=== PATIENT | female | born 1985 | race Caucasian/White ===

== ENCOUNTER 2018-03-13 13:01 | Inpatient (IN) | payer BC ==
[2018-03-13] MEDS ORDERED: Sodium Chloride 0.9% 10 ML Syringe FLUSH PRN (13:08)
[2018-03-13] MEDS ORDERED: Oxytocin/Lactated Ringers 10 UNIT/1,000 ML BAG IV SCH ×2 (13:15→19:46)
--- NOTE | 2018-03-13 13:45 | PCM.LDHP ---
L&D History of Present Illness - General Date of Service: 03/13/18 Admit Problem/Dx: Patient Status Order with Admit Dx/Problem 03/13/18 13:09 Patient Status [ADT] Routine Admission Diagnosis/Problem Admission Diagnosis/Problem Source of Information: Patient History Limitations: Reports: No Limitations - History of Present Illness Introduction:: Argelia Miller is a 32 year old at 37 weeks 5 days by 8 week U/S who was sent down from clinic for labor. She was seen in the clinic after she reported contractions that started last evening approximately 1 AM. She reports the contractions were about every 4-5 minutes and lasting 30-45 seconds. She reports that the contractions were strong enough to wake her up and that they have been increasing in intensity from the morning. Has morning she continued to have contractions that were about 4-5 minutes apart but they were then lasting 45-60 seconds. She reports that the contractions at this time a rating at a 5/10 on a pain scale. She denies any leaking of fluid or vaginal bleeding. She reports that she has had some what decreased movement since she was seen in clinic yesterday. Timing/Duration: Reports: gradual onset, getting worse Location, : Reports: Abdomen, Lower back, Pelvic Quality: Reports: Pressure, Throbbing Severity: Moderate Pain Score: 5 Improves with: Reports: None Worsens with: Reports: None Associated Symptoms: Denies: vaginal bleeding, vaginal discharge, vaginal fluid Present Illness Comments:: Argelia Miller is a 32 year old at 37 weeks 5 days by LMP consistent with 8 week U/S. she had early care in [place], [place] starting at approximately 8 weeks gestational age but transferred care to [facility] with Dr. Lares at 24 weeks gestational age. She had a transfer of care because she desired a trial of labor after section. Her initial labs showed O+ blood type with negative antibody screen. Her hematocrit was 38.3 and hemoglobin was 13.2 on 08/21/2017. Her platelets were 253 on 08/21/2017. Her Pap smear on 12/05/2015 was negative. She is rubella immune, RPR nonreactive, hepatitis B surface antigen negative and HIV negative. Chlamydia and gonorrhea on 08/18/2017 was negative. She had an elevated 1 hour glucose test of 131 on 01/15/2018. Her 3 hour glucose test was all within normal limits with values of fasting of 74, 1 hour of 168, 2 hour of 142 and 3 hour of 83. Her hematocrit was 39.8 and hemoglobin of 13.5 on 01/15/2018. Her platelets were 224 on 01/15/2018. She received TDaP vaccine on 01/15/2018. Her GBS swab was negative on 03/04/2018.sstarting at her 36 week visit she started to have decreased growth that was inconsistent with dates and an ultrasound that was performed on 03/12/2018 showed intrauterine growth restriction with estimated weight of 2602 g which was the 9th percentile. Her has otherwise been uncomplicated except for history of primary low transverse section for intolerance of labor after she went to complete and pushing in her first . She had a double layer closure with that . She desired to have a trial of labor after in this . 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) : 2 Para: 1 Other OB/BYN History: LEEP Neurological History: Reports: Migraines - Past Surgical History Female Surgical History: Reports: Section (x 1) Dermatological Surgical History: Reports: 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) Social & Family History - Family History Respiratory: Reports: Asthma, TB Musculoskeletal: Reports: Arthritis Neurological: Reports: Alzheimers Disease, Migraines Immunologic: Reports: AIDS Oncologic: Reports: Lung, Skin - Tobacco Use Smoking Status *Q: Never Smoker - Alcohol Use Alcohol Use History: No - Recreational Drug Use Recreational Drug Use: No - Sexual History Sexual History: Reports: Single Partner - Living Situation & Occupation Living situation: Reports: Occupation: Employed H&P Review of Systems - Review of Systems: Review Of Systems: See Below General: Denies: Fever, Chills, Fatigue HEENT: Denies: Headaches, Rhinitis, Post Nasal Drip, Sinus Congestion, Sore Throat, Visual Changes Pulmonary: Denies: Shortness of Breath, Wheezing, Cough Cardiovascular: Denies: Chest Pain, Palpitations Gastrointestinal: Reports: Diarrhea (x 1 episode yesterday). Denies: Abdominal Pain, Constipation, Distension, Nausea, Vomiting Genitourinary: Denies: Dysuria, Frequency, Burning, Pain, Urgency Musculoskeletal: Reports: Back Pain Skin: Denies: Rash Psychiatric: Denies: Depression, Anxiety Neurological: Denies: Headache, Numbness Hematologic/Lymphatic: Denies: Anemia Immunologic: Reports: Seasonal Allergy L&D Exam - Exam Exam: See Below - Vital Signs Vital Signs: Last Vital Signs Temp 37.1 C 03/13/18 13:09 Pulse 82 03/13/18 13:09 Resp 16 03/13/18 13:09 BP 108/66 03/13/18 13:09 Pulse Ox 100 03/13/18 13:09 Weight: 63.503 kg - OB Specific Fundal Height In cm: 33 Contraction Duration (sec): 45-60 Contraction Frequency (min): 4-5 Contraction Intensity: Moderate Movement: Active Heart Tones: Present Heart Tones per Min: 140 Heart Rate (FHR) Variability: Moderate (6-25 bmp) Presentation: Vertex Estimated Weight: 5 lbs 12 oz by U/S done on 03/12/2018 - West Score West Score Cervix Position: Midposition West Score Consistency: Soft West Score Effacement: >80% West Score Dilation: 3-4 cm West Score 's Station: -3 West Score Total: 8 - Exam General: Alert, Oriented, Mild Distress (with contractions) HEENT: Conjunctiva Clear, EOMI Neck: Supple, Trachea Midline Lungs: Clear to Auscultation, Normal Respiratory Effort Cardiovascular: Regular Rate, Regular Rhythm GI/Abdominal Exam: Soft, Non-Tender, No Distention, Other (gravid). No: Guarding, Rigid, Rebound Genitourinary: Normal external exam, Other (artificial rupture membranes with return of light meconium-stained fluid) Back Exam: Normal Inspection Extremities: Normal Inspection, No Pedal Edema Skin: Warm, Dry, Intact Psychiatric: Alert, Normal Affect, Normal Mood - Problem List (1) 37 weeks gestation of SNOMED Code(s): 32418034 ICD Code: Z3A.37 - 37 WEEKS GESTATION OF Status: Acute Current Visit: Yes (2) History of section, low transverse SNOMED Code(s): 055389646 ICD Code: Z98.891 - HISTORY OF UTERINE SCAR FROM PREVIOUS SURGERY Status: Acute Current Visit: Yes (3) History of delivery, currently SNOMED Code(s): 194442392, 562625500 ICD Code: O34.219 - MATERNAL CARE FOR UNSP TYPE SCAR FROM PREVIOUS DEL Status: Acute Current Visit: Yes (4) Encounter for trial of labor SNOMED Code(s): 448526703 ICD Code: O33.9 - MATERNAL CARE FOR DISPROPORTION, UNSPECIFIED Status: Acute Current Visit: Yes (5) Intrauterine growth restriction (IUGR) affecting care of mother, third trimester, single gestation SNOMED Code(s): 477489534, 571715487 ICD Code: O36.5930 - MATERN CARE FOR OTH OR SUSP POOR FETL GRTH, THIRD TRI, UNSP Status: Acute Current Visit: Yes Problem List Initiated/Reviewed/Updated: Yes Orders Last 24hrs: Active Orders 24 hr Category Date Time Status Patient Status [ADT] Routine ADT 03/13/18 13:09 Active Activity as Tolerated [RC] PFP Care 03/13/18 13:09 Active Communication Order [RC] ASDIRECTED Care 03/13/18 13:09 Active Heart Tones [RC] ASDIRECTED Care 03/13/18 13:09 Active Notify Provider [RC] PFP Care 03/13/18 13:09 Active Notify Provider [RC] PRN Care 03/13/18 13:09 Active Peripheral IV Care [RC] . DIRECTED Care 03/13/18 13:09 Active Vital Signs [RC] PER UNIT ROUTINE Care 03/13/18 13:09 Active Regular Diet [DIET] Diet 03/13/18 Lunch Active CBC WITH AUTO DIFF [HEME] Routine Lab 03/13/18 13:22 Received TYPE AND SCREEN [BBK] Routine Lab 03/13/18 13:32 Ordered Lactated Ringers [Ringers, Lactated] 1,000 ml Med 03/13/18 13:15 Active IV ASDIRECTED Oxytocin/Lactated Ringers [Pitocin in LR 10 Units/1,000 Med 03/13/18 13:15 Active ML] 10 unit in 1,000 ml IV .CONTINUOUS Sodium Chloride 0.9% [Saline Flush] Med 03/13/18 13:08 Active 10 ml FLUSH ASDIRECTED PRN Electronic Heart Tones Ext w TOCO [WOMSER] Oth 03/13/18 13:09 Ordered Routine Electronic Heart Tones Internal [WOMSER] Per Unit Ot 03/13/18 13:09 Ordered Routine Peripheral IV Insertion Adult [OM.PC] Routine Ot 03/13/18 13:09 Ordered Resuscitation Status Routine Resus Stat 03/13/18 13:08 Ordered Medication Orders Lactated Ringer's (Ringers, Lactated) 1,000 mls @ 100 mls/hr IV ASDIRECTED RALPH Oxytocin/Lactated Ringer's (Pitocin In Lr 10 Units/1,000 Ml) 10 unit in 1,000 mls @ 500 mls/hr IV .CONTINUOUS RALPH Sodium Chloride (Saline Flush) 10 ml FLUSH ASDIRECTED PRN PRN Reason: Keep Vein Open Stop: 03/13/18 16:00 Assessment/Plan Comment:: Refer to observation for trial of labor after section Continuous monitoring Place IV and have Lactated Ringer's at 125 ml/hr if not tolerating regular diet CBC and type and screen due to history of section with trial labor after May have small amount of regular diet Activity as tolerated May have epidural as desired Plans to breast-feed after delivery Anticipate vaginal delivery unless otherwise indicated Jose Lares M.D. 1:56 PM 03/13/2018
[2018-03-13] MEDS ORDERED: ePHEDrine 50 MG/ML SDV IVPUSH PRN (13:51)
[2018-03-13] MEDS ORDERED: Ondansetron 4 MG/2 ML SDV IVPUSH PRN (13:51)
[2018-03-13] MEDS ORDERED: fentaNYL 100 MCG/2 ML SDV EPIDUR PRN (13:51)
[2018-03-13] MEDS: Lactated Ringers 1,000 ML IV SCH ×2 (13:57→14:26)
[2018-03-13] MEDS ORDERED: Bupivacaine/fentaNYL/NS 100 ML Bag EPIDUR SCH (14:00)
[2018-03-13] MEDS ORDERED: Phenylephrine 1 MG in Sodium Chloride 0.9% 10 ML IV SCH (14:00)
--- NOTE | 2018-03-13 14:03 | PCM.PREANE ---
Preanesthetic Assessment - Anesthesia/Transfusion/Family Hx Anesthesia History: Prior Anesthesia Without Reaction Family History of Anesthesia Reaction: No Transfusion History: No Prior Transfusion(s) Intubation History: Unknown - Review of Systems General: No Symptoms Pulmonary: No Symptoms Cardiovascular: No Symptoms Gastrointestinal: No Symptoms Neurological: Headache (migraines) Other: Reports: Easy Bruising - Physical Assessment NPO Status Date: 03/13/18 NPO Status Time: 09:30 Pulse: 82 O2 Sat by Pulse Oximetry: 100 Respiratory Rate: 16 Blood Pressure: 108/66 Temperature: 2.8 C Vital Signs: Last Vital Signs Temp 37.1 C 03/13/18 13:09 Pulse 82 03/13/18 13:09 Resp 16 03/13/18 13:09 BP 108/66 03/13/18 13:09 Pulse Ox 100 03/13/18 13:09 Height: 1.57 m Weight: 63.503 kg ASA Class: 2 Mental Status: Alert & Oriented x3 Airway Class: Mallampati = 2 Dentition: Reports: Normal Dentition, Caries Thyro-Mental Finger Breadths: 3 Mouth Opening Finger Breadths: 3 ROM/Head Extension: Full Lungs: Clear to Auscultation, Normal Respiratory Effort Cardiovascular: Regular Rate, Regular Rhythm, No Murmurs - Lab Values: Laboratory Last Values WBC 10.66 K/mm3 (3.98-10.04) H 03/13/18 13:22 RBC 4.25 M/mm3 (3.98-5.22) 03/13/18 13:22 Hgb 13.3 gm/L (11.2-15.7) 03/13/18 13:22 Hct 38.4 % (34.1-44.9) 03/13/18 13:22 MCV 90.4 fl (79.4-94.8) 03/13/18 13:22 MCH 31.3 pg (25.6-32.2) 03/13/18 13:22 MCHC 34.6 g/dl (32.2-35.5) 03/13/18 13:22 RDW Std Deviation 42.3 fL (36.4-46.3) 03/13/18 13:22 Plt Count 197 K/mm3 (182-369) 03/13/18 13:22 MPV 10.0 fl (9.4-12.3) 03/13/18 13:22 Neut % (Auto) 78.0 % (34.0-71.1) H 03/13/18 13:22 Lymph % (Auto) 16.3 % (19.3-51.7) L 03/13/18 13:22 [place] % (Auto) 4.9 % (4.7-12.5) 03/13/18 13:22 Eos % (Auto) 0.3 (0.7-5.8) L 03/13/18 13:22 Baso % (Auto) 0.2 % (0.1-1.2) 03/13/18 13:22 Neut # (Auto) 8.32 K/mm3 (1.56-6.13) H 03/13/18 13:22 Lymph # (Auto) 1.74 K/mm3 (1.18-3.74) 03/13/18 13:22 [place] # (Auto) 0.52 K/mm3 (0.24-0.36) H 03/13/18 13:22 Eos # (Auto) 0.03 K/mm3 (0.04-0.36) L 03/13/18 13:22 Baso # (Auto) 0.02 K/mm3 (0.01-0.08) 03/13/18 13:22 Above labs reviewed and noted and within acceptable ranges to proceed with epidural. 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) [employer]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: , 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) Other OB/BYN History: LEEP Neurological History: Reports: Migraines - Past Surgical History Female Surgical History: Reports: Section (x 1) Dermatological Surgical History: Reports: 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) - SUBSTANCE USE Smoking Status *Q: Never Smoker Second Hand Smoke Exposure: No Recreational Drug Use History: No - HOME MEDS Home Medications: Home Meds PNV95/Ferrous Fumarate/FA [ Tablet] 1 tab PO DAILY 03/13/18 [History] - CURRENT (IN HOUSE) MEDS Current Meds: Current Medications Ephedrine Sulfate (Ephedrine Sulfate) 5 mg IVPUSH ASDIRECTED PRN PRN Reason: Hypotension Fentanyl (Sublimaze) 100 mcg EPIDUR Q3H PRN PRN Reason: Pain Fentanyl/Bupivacaine HCl (Fentanyl/Bupivacaine/Ns 2 Mcg-0.125% 100 Ml) 100 ml EPIDUR ASDIRECTED RALPH Lactated Ringer's (Ringers, Lactated) 1,000 mls @ 100 mls/hr IV ASDIRECTED RALPH Oxytocin/Lactated Ringer's (Pitocin In Lr 10 Units/1,000 Ml) 10 unit in 1,000 mls @ 500 mls/hr IV .CONTINUOUS RALPH Phenylephrine HCl 1 mg/ Sodium (Chloride) 10.1 mls @ 1 mls/sec IV TITRATE RALPH; Protocol Ondansetron HCl (Zofran) 4 mg IVPUSH ONETIME PRN PRN Reason: Nausea/Vomiting Sodium Chloride (Saline Flush) 10 ml FLUSH ASDIRECTED PRN PRN Reason: Keep Vein Open Stop: 03/13/18 16:00
--- NOTE | 2018-03-13 19:21 | PCM.DEL ---
L & D Note - General Info Date of Service: 03/13/18 Mother's Due Date: 03/29/18 - Delivery Note Labor: Spontaneous, Augmented by ARM Delivery Outcome: Livebirth Delivery Method: Spontaneous Vaginal Delivery-Single Presentation: Right Occiput Anterior (LEDA) Nuchal Cord: None Anesthesia Type: Epidural Amniotic Fluid Description: Meconium Stained Episiotomy Type: None Laceration: 2nd Degree, Perineal Suture type: Vicryl Suture size: 3-0 Placenta: Intact, Spontaneous Cord: 3 Vessels Estimated Blood Loss: 300 Resuscitation Needed: Yes [place]: Suctioned, Bulb Syringe, Stimulated, Warmed, [place] Used, Warmer Used Provider: Jose Lares Score 1 min: 0 Score 5 min: 3 Score 10 min: 8 Second Stage Interventions: Reports: Pushing Effectively Delivery Comments (Free Text/Narrative):: Stage I: Argeila Miller was admitted for spontaneous labor. On admission her cervix was dilated to 4 cm. She was GBS negative. She had artificial rupture membranes with meconium-stained fluid. She was given an epidural for anesthesia. She progressed to complete and pushing. Stage II: On 03/13/2018 she had a normal vaginal delivery of a live male infant at 1840. Apgars of 0, 3 & 8. Weight of 2600 g (5 lbs 12 oz). There was no nuchal cord. Infant was delivered in LEDA position. The cord was doubly clamped and cut by father . Infant was placed on mother's abdomen initially then transferred to warmer for resuscitation. Stage III: She had a spontaneous delivery of an intact placenta in Freddie presentation. Three vessel cord. She was given pitocin and fundal massage. She had second degree midline perineal laceration that was repaired with 3-0 Vicryl. Mom was stable to recovery. was transferred to nursery for further evaluation and resuscitation. EBL of 300 mL. Jose Lares MD 7:21 PM 03/13/2018 - General Info Date of Service: 03/13/18 - Patient Data Vitals - Most Recent: Last Vital Signs Temp 2.8 C L 03/13/18 14:05 Pulse 82 03/13/18 14:05 Resp 16 03/13/18 14:05 BP 108/66 03/13/18 14:05 Pulse Ox 100 03/13/18 14:05 Weight - Most Recent: 63.503 kg I&O - Last 24 Hours: Intake & Output 03/13/18 03/13/18 03/13/18 06:59 14:59 22:59 Intake Total 60 Balance 60 Lab Results Last 24 Hours: Laboratory Results - last 24 hr 03/13/18 03/13/18 03/13/18 Range/Units 13:22 13:22 18:50 WBC 10.66 H (3.98-10.04) K/mm3 RBC 4.25 (3.98-5.22) M/mm3 Hgb 13.3 (11.2-15.7) gm/L Hct 38.4 (34.1-44.9) % MCV 90.4 (79.4-94.8) fl MCH 31.3 (25.6-32.2) pg MCHC 34.6 (32.2-35.5) g/dl RDW Std Deviation 42.3 (36.4-46.3) fL Plt Count 197 (182-369) K/mm3 MPV 10.0 (9.4-12.3) fl Neut % (Auto) 78.0 H (34.0-71.1) % Lymph % (Auto) 16.3 L (19.3-51.7) % [place] % (Auto) 4.9 (4.7-12.5) % Eos % (Auto) 0.3 L (0.7-5.8) Baso % (Auto) 0.2 (0.1-1.2) % Neut # (Auto) 8.32 H (1.56-6.13) K/mm3 Lymph # (Auto) 1.74 (1.18-3.74) K/mm3 [place] # (Auto) 0.52 H (0.24-0.36) K/mm3 Eos # (Auto) 0.03 L (0.04-0.36) K/mm3 Baso # (Auto) 0.02 (0.01-0.08) K/mm3 Cord ABG pH 7.18 L (7.22-7.32) Cord ABG pCO2 54.1 (42-58) Cord ABG pO2 21 (12-24) Cord ABG HCO3 19.3 L (24-26) Cord ABG Base Excess -9.8 L (-5.5-0.1) Blood Type O POSITIVE Gel Antibody Screen Negative Med Orders - Current: Current Medications Ephedrine Sulfate (Ephedrine Sulfate) 5 mg IVPUSH ASDIRECTED PRN PRN Reason: Hypotension Fentanyl (Sublimaze) 100 mcg EPIDUR Q3H PRN PRN Reason: Pain Last Admin: 03/13/18 14:06 Dose: 100 mcg Fentanyl/Bupivacaine HCl (Fentanyl/Bupivacaine/Ns 2 Mcg-0.125% 100 Ml) 100 ml EPIDUR ASDIRECTED RALPH Last Admin: 03/13/18 14:05 Dose: 100 ml Lactated Ringer's (Ringers, Lactated) 1,000 mls @ 100 mls/hr IV ASDIRECTED RALPH Last Admin: 03/13/18 14:26 Dose: 999 mls/hr Oxytocin/Lactated Ringer's (Pitocin In Lr 10 Units/1,000 Ml) 10 unit in 1,000 mls @ 500 mls/hr IV .CONTINUOUS RALPH Phenylephrine HCl 1 mg/ Sodium (Chloride) 10.1 mls @ 1 mls/sec IV TITRATE RALPH; Protocol Ondansetron HCl (Zofran) 4 mg IVPUSH ONETIME PRN PRN Reason: Nausea/Vomiting Discontinued Medications Sodium Chloride (Saline Flush) 10 ml FLUSH ASDIRECTED PRN PRN Reason: Keep Vein Open Stop: 03/13/18 16:00 - Problem List & Annotations (1) 37 weeks gestation of SNOMED Code(s): 25598336 Code(s): Z3A.37 - 37 WEEKS GESTATION OF Status: Acute Current Visit: Yes (2) History of section, low transverse SNOMED Code(s): 895833914 Code(s): Z98.891 - HISTORY OF UTERINE SCAR FROM PREVIOUS SURGERY Status: Acute Current Visit: Yes (3) History of delivery, currently SNOMED Code(s): 393193209, 983057307 Code(s): O34.219 - MATERNAL CARE FOR UNSP TYPE SCAR FROM PREVIOUS DEL Status: Acute Current Visit: Yes (4) Intrauterine growth restriction (IUGR) affecting care of mother, third trimester, single gestation SNOMED Code(s): 291579641, 167362621 Code(s): O36.5930 - MATERN CARE FOR OTH OR SUSP POOR FETL GRTH, THIRD TRI, UNSP Status: Acute Current Visit: Yes (5) Vaginal after () SNOMED Code(s): 179371911 Code(s): O34.219 - MATERNAL CARE FOR UNSP TYPE SCAR FROM PREVIOUS DEL Status: Acute Current Visit: Yes (6) Second degree perineal laceration during delivery, delivered SNOMED Code(s): 1895187 Code(s): O70.1 - SECOND DEGREE PERINEAL LACERATION DURING DELIVERY Status: Acute Current Visit: Yes (7) Encounter for trial of labor SNOMED Code(s): 255426160 Code(s): O33.9 - MATERNAL CARE FOR DISPROPORTION, UNSPECIFIED Status: Acute Current Visit: Yes - Problem List Review Problem List Initiated/Reviewed/Updated: Yes - My Orders Last 24 Hours: My Active Orders 03/13/18 13:08 Resuscitation Status Routine 03/13/18 13:09 Patient Status [ADT] Routine Activity as Tolerated [RC] PFP Communication Order [RC] ASDIRECTED Heart Tones [RC] ASDIRECTED Notify Provider [RC] PFP Notify Provider [RC] PRN Peripheral IV Care [RC] . DIRECTED Vital Signs [RC] PER UNIT ROUTINE Electronic Heart Tones Ext w TOCO [WOMSER] Routine Electronic Heart Tones Internal [WOMSER] Per Unit Routine Peripheral IV Insertion Adult [OM.PC] Routine 03/13/18 13:15 Lactated Ringers [Ringers, Lactated] 1,000 ml IV ASDIRECTED Oxytocin/Lactated Ringers [Pitocin in LR 10 Units/1,000 ML] 10 unit in 1,000 ml IV .CONTINUOUS 03/13/18 13:22 RAPID PLASMA REAGIN,RPR [CHEM] Routine 03/13/18 Lunch Regular Diet [DIET] - Plan Plan:: Admit to inpatient following normal spontaneous vaginal delivery after section Continue Pitocin per unit protocol following delivery of placenta and lactated Ringer's until tolerating regular diet Regular diet Vitals per unit routine Ibuprofen and Tylenol for pain control Assist with breast-feeding as needed Continue to monitor lochia Anticipate discharge home on day #1 or 2 depending on status Jose Lares MD 7:23 PM 03/13/2018
[2018-03-13] MEDS ORDERED: Benzocaine/Menthol 20%-0.5% Spray 56 GM Canister TOP PRN (19:46)
[2018-03-13] MEDS ORDERED: Acetaminophen 325 MG Tab PO PRN (19:46)
[2018-03-13] MEDS ORDERED: Lanolin 100% Cream 7 GM Tube TOP PRN (19:46)
[2018-03-13] MEDS ORDERED: Hydrocortisone Acetate 25 MG Supp RECTAL PRN (19:46)
[2018-03-13] MEDS ORDERED: Witch Hazel Medicated Pads 100/Jar TOP PRN (19:46)
[2018-03-13] MEDS ORDERED: Lactated Ringers 1,000 ML IV SCH (19:46)
[2018-03-13] MEDS: Ibuprofen 600 MG Tab PO PRN (20:12)
--- NOTE | 2018-03-13 20:54 | PCM48HPAN ---
Post Anesthesia Note - EVALUATION WITHIN 48HRS OF ANESTHETIC Vital Signs in Normal Range: Yes Patient Participated in Evaluation: Yes Respiratory Function Stable: Yes Airway Patent: Yes Cardiovascular Function Stable: Yes Hydration Status Stable: Yes Pain Control Satisfactory: Yes Nausea and Vomiting Control Satisfactory: Yes Mental Status Recovered: Yes
[2018-03-13] MEDS ORDERED: Bupivacaine 0.25% 10 ML SDV ONE (22:00)
[2018-03-14] MEDS: Ibuprofen 600 MG Tab PO PRN ×4 (02:24→23:29)
--- NOTE | 2018-03-14 07:16 | PCM.SN ---
- Free Text/Narrative Note: day 1: Patient is doing well in the period. Minimal lochia, voiding well, ambulated without problems. Nursing without concerns. Patient is afebrile, vital signs are stable Abdomen is flat, soft, uterus is below the umbilicus and is firm and nontender. Legs are nontender. Assessment: recovery going well. Plan: Routine care. Patient be discharged home within the next 24- 48 hours.
[2018-03-14] MEDS: Prenatal Multivitamin with Calcium/Folic Acid/Iron Tab PO SCH (09:13)
[2018-03-14] MEDS: Docusate Sodium 100 MG Cap PO PRN ×2 (09:13→21:21)
[2018-03-15] MEDS: Ibuprofen 600 MG Tab PO PRN ×3 (05:08→18:02)
--- NOTE | 2018-03-15 07:48 | PCM.DCSUM1 ---
Discharge Summary - Hospital Course Free Text/Narrative:: Mireya is a 32-year-old 2 now para 2002 was admitted in active labor at 4 cm dilated on 03/13/2018. She had artificial rupture membranes with meconium- stained amniotic fluid. She was given epidural for anesthesia. We'd and on 2017 had a normal vaginal delivery of a viable male infant at 1840 hrs. Apgars were 0, 3 and 8. Weight was 2600 mL 5 lbs. 12 oz. Baby was delivered in LEDA position. Doubly clamped and cut by the baby's father. babies been doing well. Patient is having some difficulty nursing. She has minimal discomfort, minimal lochia. She is voiding well and ambulating without concerns. Patient desiring discharge home today. - Discharge Data Discharge Date: 03/15/18 Discharge Disposition: Home, Self-Care 01 Condition: Good - Patient Instructions Diet: Regular Diet as Tolerated (Nursing diet was increased calories and calcium is recommended) Activity: As Tolerated (No intercourse or tampons until bleeding resolves) Driving: Do Not Drive (2 days) Showering/Bathing: May Shower (May take a bath) Notify Provider of: Fever, Increased Pain, Swelling and Redness, Nausea and/or Vomiting - Discharge Plan Home Medications: Home Meds PNV95/Ferrous Fumarate/FA [ Tablet] 1 tab PO DAILY 03/13/18 [History] Acetaminophen [Tylenol] 650 mg PO Q6H PRN tablet 03/15/18 [Rx] Ibuprofen [Motrin] 600 mg PO Q6H PRN #30 tablet 03/15/18 [Rx] - Discharge Summary/Plan Comment DC Time >30 min.: No Discharge Summary/Plan Comment: Discharge instructions: 1. Discharge home 2. Diet, activity and follow-up discussed with patient. Recommend nursing diet with increased calories and calcium. 3. Precautions given concern increased pain, bleeding, temperature, signs/ symptoms of DVT/PE. 4. Medications per home medication was printed, discussed with and given to the patient. 5. Return to clinic-Dr. Lares[facility] in 2 weeks. Diagnosis: Term -delivered Condition: Good - Patient Data Vitals - Most Recent: Last Vital Signs Temp 36.8 C 03/15/18 03:24 Pulse 69 06/10/18 03:24 Resp 15 03/15/18 03:24 BP 118/90 03/15/18 03:24 Pulse Ox 100 03/15/18 03:24 Weight - Most Recent: 63.503 kg Med Orders - Current: Current Medications Acetaminophen (Tylenol) 650 mg PO Q6H PRN PRN Reason: mild pain or fever Benzocaine/Menthol (Dermoplast Pain Relief [place]) 0 gm TOP ASDIRECTED PRN PRN Reason: Perineal Comfort Measure Last Admin: 03/14/18 11:35 Dose: 1 can Docusate Sodium (Colace) 100 mg PO BID PRN PRN Reason: Constipation Last Admin: 03/14/18 21:21 Dose: 100 mg Emollient Ointment (Lansinoh Hpa) 0 gm TOP ASDIRECTED PRN PRN Reason: Sore Nipples Last Admin: 03/14/18 18:30 Dose: 1 tube Hydrocortisone Acetate (Anucort-Hc) 25 mg RECTAL BID PRN PRN Reason: Hemorrhoid pain Lactated Ringer's (Ringers, Lactated) 1,000 mls @ 125 mls/hr IV ASDIRECTED RALPH Oxytocin/Lactated Ringer's (Pitocin In Lr 10 Units/1,000 Ml) 10 unit in 1,000 mls @ 100 mls/hr IV TITRATE RALPH; Protocol Last Admin: 03/13/18 18:40 Dose: 500 mls/hr Ibuprofen (Motrin) 600 mg PO Q6H PRN PRN Reason: Mild pain or fever Last Admin: 03/15/18 05:08 Dose: 600 mg Prenat Multivit/Clerical Adviser/Iron/Folic Ac ( Plus Iron) 1 each PO DAILY RALPH Last Admin: 03/14/18 09:13 Dose: 1 each Witch Regina (Tucks) 1 pad TOP ASDIRECTED PRN PRN Reason: Hemorrhoid pain Last Admin: 03/14/18 11:35 Dose: 1 canister Discontinued Medications Ephedrine Sulfate (Ephedrine Sulfate) 5 mg IVPUSH ASDIRECTED PRN PRN Reason: Hypotension Fentanyl (Sublimaze) 100 mcg EPIDUR Q3H PRN PRN Reason: Pain Last Admin: 03/13/18 14:06 Dose: 100 mcg Fentanyl/Bupivacaine HCl (Fentanyl/Bupivacaine/Ns 2 Mcg-0.125% 100 Ml) 100 ml EPIDUR ASDIRECTED RALPH Last Admin: 03/13/18 14:05 Dose: 100 ml Lactated Ringer's (Ringers, Lactated) 1,000 mls @ 100 mls/hr IV ASDIRECTED RALPH Last Admin: 03/13/18 14:26 Dose: 999 mls/hr Oxytocin/Lactated Ringer's (Pitocin In Lr 10 Units/1,000 Ml) 10 unit in 1,000 mls @ 500 mls/hr IV .CONTINUOUS RALPH Phenylephrine HCl 1 mg/ Sodium (Chloride) 10.1 mls @ 1 mls/sec IV TITRATE RALPH; Protocol Ondansetron HCl (Zofran) 4 mg IVPUSH ONETIME PRN PRN Reason: Nausea/Vomiting Sodium Chloride (Saline Flush) 10 ml FLUSH ASDIRECTED PRN PRN Reason: Keep Vein Open Stop: 03/13/18 16:00
[2018-03-15] MEDS: Prenatal Multivitamin with Calcium/Folic Acid/Iron Tab PO SCH (09:19)
[2018-03-15] MEDS: Docusate Sodium 100 MG Cap PO PRN (09:20)
[2018-03-15 17:56] VITALS: BP 107/65
== END 2018-03-15 19:35 | disposition home or self-care (01) | DRG 560 ==
LOC: JD.OB 13:01 → OBSVTOIN 18:40 → JD.OB 18:40
PROVIDERS: ADMIT Obstetrics & Gynecology; ATTEND Obstetrics & Gynecology
PROC: 10E0XZZ Delivery of Products of Conception, External Approach (ICD-10-PCS; principal; 2018-03-13)
PROC: 0KQM0ZZ Repair Perineum Muscle, Open Approach (ICD-10-PCS; principal; 2018-03-13)
PROC: 10907ZC Drainage of Amniotic Fluid, Therapeutic from Products of Conception, Via Natural or Artificial Opening (ICD-10-PCS; principal; 2018-03-13)
PROC: 00HU33Z Insertion of Infusion Device into Spinal Canal, Percutaneous Approach (ICD-10-PCS; 2018-03-13)
PROC: 3E0R3BZ Introduction of Anesthetic Agent into Spinal Canal, Percutaneous Approach (ICD-10-PCS; 2018-03-13)
DX: O34.211 Maternal care for low transverse scar from previous cesarean delivery (principal); N85.8 Other specified noninflammatory disorders of uterus; Z3A.37 37 weeks gestation of pregnancy; Z37.0 Single live birth; O70.1 Second degree perineal laceration during delivery; O36.5930 Maternal care for other known or suspected poor fetal growth, third trimester, not applicable or unspecified; O98.32 Other infections with a predominantly sexual mode of transmission complicating childbirth; A63.0 Anogenital (venereal) warts; O77.0 Labor and delivery complicated by meconium in amniotic fluid
CPT/HCPCS: 36415; 36600; 51701; 51702; 59025; 59300; 59409; 82803; 85025; 86592; 86850; 86900; 86901; A9270-GY; J2590; J3010; J7120

== ENCOUNTER 2020-10-18 13:27 | Inpatient (IN) | payer BC ==
[2020-10-18] MEDS ORDERED: Sodium Chloride 0.9% 10 ML Syringe FLUSH PRN (14:12)
[2020-10-18] MEDS ORDERED: Ondansetron 4 MG/2 ML SDV IVPUSH PRN ×2 (14:12→15:01)
[2020-10-18] MEDS ORDERED: Lidocaine 1% 50 ML MDV INJECT ONE (14:12)
[2020-10-18] MEDS ORDERED: Nalbuphine 10 MG/1 ML Vial IVPUSH PRN (14:12)
[2020-10-18] MEDS ORDERED: Oxytocin/Lactated Ringers 10 UNIT/1,000 ML BAG IV SCH ×2 (14:15→19:43)
[2020-10-18] MEDS ORDERED: fentaNYL 100 MCG/2 ML SDV EPIDUR PRN (15:01)
[2020-10-18] MEDS ORDERED: ePHEDrine 50 MG/ML SDV IVPUSH PRN (15:01)
--- NOTE | 2020-10-18 15:01 | PCM.PREANE ---
Preanesthetic Assessment - Procedure Proposed Procedure: Laboring Epidural - Anesthesia/Transfusion/Family Hx Anesthesia History: Prior Anesthesia Without Reaction Family History of Anesthesia Reaction: No Transfusion History: No Prior Transfusion(s) Intubation History: Unknown - Review of Systems General: No Symptoms Pulmonary: No Symptoms Cardiovascular: No Symptoms Gastrointestinal: No Symptoms Neurological: No Symptoms (occasional chiropractor visits), Headache (migraines) Other: Reports: None, Easy Bruising - Physical Assessment NPO Status Date: 10/18/20 NPO Status Time: 13:30 Vital Signs: HR:74 Sat:99% Temp:98.9 B/P:115/66 Resp:16 Height: 1.6 m Weight: 66.48 kg ASA Class: 2 Mental Status: Alert & Oriented x3 Airway Class: Mallampati = 2 Dentition: Reports: Normal Dentition, Caries Thyro-Mental Finger Breadths: 3 Mouth Opening Finger Breadths: 3 ROM/Head Extension: Full Lungs: Clear to Auscultation, Normal Respiratory Effort Cardiovascular: Regular Rate, Regular Rhythm, No Murmurs - Lab Values: Laboratory Last Values WBC 10.72 K/mm3 (3.98-10.04) H 10/18/20 14:26 RBC 4.21 M/mm3 (3.98-5.22) 10/18/20 14:26 Hgb 12.8 gm/dl (11.2-15.7) 10/18/20 14:26 Hct 37.9 % (34.1-44.9) 10/18/20 14:26 MCV 90.0 fl (79.4-94.8) 10/18/20 14:26 MCH 30.4 pg (25.6-32.2) 10/18/20 14:26 MCHC 33.8 g/dl (32.2-35.5) 10/18/20 14:26 RDW Std Deviation 42.1 fL (36.4-46.3) 10/18/20 14:26 Plt Count 258 K/mm3 (182-369) D 10/18/20 14:26 MPV 10.0 fl (9.4-12.3) 10/18/20 14:26 Neut % (Auto) 80.6 % (34.0-71.1) H 10/18/20 14:26 Lymph % (Auto) 14.6 % (19.3-51.7) L 10/18/20 14:26 [place] % (Auto) 4.2 % (4.7-12.5) L 10/18/20 14:26 Eos % (Auto) 0.3 (0.7-5.8) L 10/18/20 14:26 Baso % (Auto) 0.2 % (0.1-1.2) 10/18/20 14:26 Neut # (Auto) 8.65 K/mm3 (1.56-6.13) H 10/18/20 14:26 Lymph # (Auto) 1.56 K/mm3 (1.18-3.74) 10/18/20 14: [place] # (Auto) 0.45 K/mm3 (0.24-0.36) H 10/18/20 14: Eos # (Auto) 0.03 K/mm3 (0.04-0.36) L 10/18/20 14: Baso # (Auto) 0.02 K/mm3 (0.01-0.08) 10/18/20 14:26 All labs reviewed and noted and within acceptable ranges to proceed with epidural if desired. 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) [employer] History: Reports: , 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) Other OB/BYN History: LEEP Neurological History: Reports: Migraines - Past Surgical History Female Surgical History: Reports: Section (x 1) Dermatological Surgical History: Reports: 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) - HOME MEDS Home Medications: Home Meds Pnv No.95/Ferrous Fum/Folic AC [ Tablet] 1 tab PO DAILY 03/13/18 [History] - CURRENT (IN HOUSE) MEDS Current Meds: Current Medications Oxytocin/Lactated Ringer's (Pitocin In Lr 10 Units/1,000 Ml) 10 unit in 1,000 mls @ 500 mls/hr IV .CONTINUOUS RALPH Lactated Ringer's (Ringers, Lactated) 1,000 mls @ 100 mls/hr IV ASDIRECTED RALPH Nalbuphine HCl (Nubain) 10 mg IVPUSH Q2H PRN PRN Reason: Pain Ondansetron HCl (Zofran) 4 mg IVPUSH Q4H PRN PRN Reason: Nausea/Vomiting Sodium Chloride (Saline Flush) 10 ml FLUSH ASDIRECTED PRN PRN Reason: Keep Vein Open Discontinued Medications Lidocaine HCl (Xylocaine 1%) 50 ml INJECT ONETIME ONE Stop: 10/18/20 14:13
[2020-10-18] MEDS ORDERED: Bupivacaine/fentaNYL/NS 100 ML Bag EPIDUR SCH (15:15)
[2020-10-18] MEDS: Lactated Ringers 1,000 ML IV SCH ×2 (17:08→17:38)
--- NOTE | 2020-10-18 17:26 | PCM.LDHP ---
L&D History of Present Illness - General Date of Service: 10/18/20 Admit Problem/Dx: Patient Status Order with Admit Dx/Problem 10/18/20 14:12 Patient Status [ADT] Routine Admission Diagnosis/Problem Admission Diagnosis/Problem Labor established Source of Information: Patient - History of Present Illness Introduction:: Argelia Miller is a 35-year-old -0-0-2 female who presents for evaluation of possible labor. She reports that she started to have contractions last night that continued into this morning and became stronger and more painful this mo rning. She also reports that she had a small amount of bloody show this morning. She reports the contractions were about 4 to 7 minutes apart and had stayed that way throughout the day. She had called our office at around noon with concerns that she may possibly be in labor and she was recommended to come in for evaluation at that time. She reports good movement Timing/Duration: Reports: gradual onset, intermittent (Every 4 to 7 minutes with times where will be longer between contractions), getting worse Location, : Reports: Pelvic, Uterus Quality: Reports: Pressure, Throbbing Severity: Moderate Improves with: Reports: None Worsens with: Reports: None Associated Symptoms: Reports: vaginal bleeding, mild amount. Denies: vaginal discharge, vaginal fluid Present Illness Comments:: Argelia Miller is a 35-year-old -0-0-2 female at 39 weeks 1 day ([place] 10/24/2020) by LMP consistent with an 11-week ultrasound who presented for labor evaluation and was found to have cervical change with irregular contraction pattern. Patient was kept for augmentation of early labor. She has had routine care with myself, Dr. Lares, starting at 11 weeks gestational age. She received flu vaccine on 07/20/2020 and Tdap vaccine on 08/16/2020. She had a growth ultrasound done on 09/27/2020 with the weighing at 3458 g (6 pounds 1 ounce) (38th percentile) at that time. Patient does have a history of a successful delivery that occurred in March 2018. Her is complicated by: * History of section for nonreassuring heart tones with successfu l delivery in 2018. Desires trial of labor after section with this . Patient was previously counseled on the risks and benefits of the trial of labor and she desires to proceed with trial of labor after section. * History of IUGR infant in her last that was delivered at 37 weeks 5 days and weighed 5 pounds 12 ounces. She had an ultrasound done on 09/27/2020 when she was 36 weeks gestational age and the infant was measuring approximately 1 week behind at 3458 g (6 pounds 1 ounce) (38th percentile). 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 G1: 10/21/2015, primary low transverse section with double layer closure, 38 weeks gestational age, 6 pounds 6 ounces, male , epidural for anesthesia, section done for nonreassuring heart tones G2: 03/13/2018, delivery, 37 weeks 5 days, 5 pounds 12 ounces, male infant, epidural for anesthesia, IUGR with meconium stained fluid G3: Current labs Blood type: O+ Antibody screen: Negative First trimester hematocrit/hemoglobin: 39.5%/13.6 on 04/03/2020 Platelets: 240 on 04/03/2020 Urine culture: Mixed archie suggestive of contamination Rubella status: Immune Hepatitis B surface antigen: Negative RPR: Negative HIV: Negative Gonorrhea: Negative Chlamydia: Negative Anatomy ultrasound: Normal anatomy, no abnormalities, anterior placenta, no previa, EFW 3458 g (6 pounds 1 ounce) (30th percentile) on 09/27/2020 One hour glucose tolerance test: 120 Second trimester hematocrit/hemoglobin: 36.2%/12.2 on 07/20/2020 Platelets: 160 on 07/20/2020 GBS status: Negative - Related Data Allergies/Adverse Reactions: Allergies Allergy/AdvReac Type Severity Reaction Status Date / Time No Known Allergies Allergy Verified 03/13/18 13:08 Home Medications: Home Meds Pnv No.95/Ferrous Fum/Folic AC [ Tablet] 1 tab PO DAILY 03/13/18 [H istory] Past Medical History HEENT History: Reports: 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) Other HEENT History: wisdom teeh extraction 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: Reports: , 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) : 3 Para: 2 Other OB/BYN History: LEEP Musculoskeletal History: Reports: None Neurological History: Reports: Migraines - Past Surgical History Female Surgical History: Reports: Section (x 1) Dermatological Surgical History: Reports: 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) Social & Family History - Family History Family Medical History: No Pertinent Family History Respiratory: Reports: Asthma, TB Musculoskeletal: Reports: Arthritis Neurological: Reports: Alzheimers Disease, Migraines Immunologic: Reports: AIDS Oncologic: Reports: Lung, Skin - Tobacco Use Tobacco Use Status *Q: Never Tobacco User Second Hand Smoke Exposure: No - Tobacco Core Measures Tobacco Use/Smoking Within Last 30 Days: No Smokeless Tobacco Use in Last 30 Days: No - Caffeine Use Caffeine Use: Reports: Soda Caffeine Use Comment: occisonal - Alcohol Use Alcohol Use History: No - Recreational Drug Use Recreational Drug Use: No - Sexual History Sexual History: Reports: Single Partner - Living Situation & Occupation Living situation: Reports: Occupation: Employed H&P Review of Systems - Review of Systems: Review Of Systems: See Below General: Denies: Fever, Chills, Malaise, Weakness, Fatigue HEENT: Denies: Headaches, Rhinitis, Post Nasal Drip, Sinus Congestion, Sore Throat, Visual Changes Pulmonary: Denies: Shortness of Breath, Wheezing, Pleuritic Chest Pain, Cough Cardiovascular: Denies: Chest Pain, Palpitations, Dyspnea on Exertion, Orthopnea Gastrointestinal: Denies: Abdominal Pain, Constipation, Diarrhea, Nausea, Vomiting Genitourinary: Denies: Dysuria, Frequency, Burning, Pain, Urgency Musculoskeletal: Reports: Back Pain (and hip pain of ) Skin: Denies: Rash, Lesions Psychiatric: Denies: Depression, Anxiety L&D Exam - Exam Exam: See Below - Vital Signs Vital Signs: Last Vital Signs Temp 37.2 C 10/18/20 14:12 Pulse 72 10/18/20 14:12 Resp 16 10/18/20 14:12 BP 115/66 10/18/20 14:12 Pulse Ox 100 10/18/20 14:12 Weight: 66.48 kg - OB Specific Contraction Duration (sec): 45-60 Contraction Frequency (min): 3-8 Contraction Intensity: Moderate to Strong Movement: Active Heart Tones: Present Heart Tones per Min: 135 (+15 x 15 accelerations, intermittent early decelerations) Heart Rate (FHR) Variability: Moderate (6-25 bmp) Presentation: Vertex Estimated Weight: 6.5-7 pounds by Shimon's - West Score West Score Cervix Position: Midposition West Score Consistency: Soft West Score Effacement: >80% (90%) West Score Dilation: 3-4 cm (4.5 cm) West Score 's Station: -3 West Score Total: 8 - Exam General: Alert, Oriented HEENT: Conjunctiva Clear, EOMI Neck: Supple, Trachea Midline Lungs: Clear to Auscultation, Normal Respiratory Effort Cardiovascular: Regular Rate, Regular Rhythm GI/Abdominal Exam: Soft, Non-Tender, No Distention, Other (Gravid). No: Guarding, Rigid, Rebound Genitourinary: Normal external exam Extremities: Normal Inspection, No Pedal Edema Skin: Warm, Dry, Intact Psychiatric: Alert, Normal Affect, Normal Mood - Patient Data Lab Results Last 24 hrs: Laboratory Results - last 24 hr 10/18/20 10/18/20 10/18/20 Range/Units 14:20 14:26 14:26 WBC 10.72 H (3.98-10.04) K/mm3 RBC 4.21 (3.98-5.22) M/mm3 Hgb 12.8 (11.2-15.7) gm/dl Hct 37.9 (34.1-44.9) % MCV 90.0 (79.4-94.8) fl MCH 30.4 (25.6-32.2) pg MCHC 33.8 (32.2-35.5) g/dl RDW Std Deviation 42.1 (36.4-46.3) fL Plt Count 258 D (182-369) K/mm3 MPV 10.0 (9.4-12.3) fl Neut % (Auto) 80.6 H (34.0-71.1) % Lymph % (Auto) 14.6 L (19.3-51.7) % [place] % (Auto) 4.2 L (4.7-12.5) % Eos % (Auto) 0.3 L (0.7-5.8) Baso % (Auto) 0.2 (0.1-1.2) % Neut # (Auto) 8.65 H (1.56-6.13) K/mm3 Lymph # (Auto) 1.56 (1.18-3.74) K/mm3 [place] # (Auto) 0.45 H (0.24-0.36) K/mm3 Eos # (Auto) 0.03 L (0.04-0.36) K/mm3 Baso # (Auto) 0.02 (0.01-0.08) K/mm3 SARS-CoV-2 RNA (RAKEL) Negative (NEGATIVE) Blood Type O POSITIVE Gel Antibody Screen Negative Result Diagrams: 10/18/20 14:26 - Problem List (1) 39 weeks gestation of SNOMED Code(s): 85877332 ICD Code: Z3A.39 - 39 WEEKS GESTATION OF Status: Acute Current Visit: Yes (2) History of delivery, currently SNOMED Code(s): 576698715, 360627949 ICD Code: O34.219 - MATERNAL CARE FOR UNSP TYPE SCAR FROM PREVIOUS DEL Status: Acute Current Visit: No (3) History of section, low transverse SNOMED Code(s): 151713505 ICD Code: Z98.891 - HISTORY OF UTERINE SCAR FROM PREVIOUS SURGERY Status: Acute Current Visit: No Problem List Initiated/Reviewed/Updated: Yes Orders Last 24hrs: Active Orders 24 hr Category Date Time Status Patient Status [ADT] Routine ADT 10/18/20 14:12 Active Activity as Tolerated [RC] PFP Care 10/18/20 14:12 Active Communication Order [RC] ASDIRECTED Care 10/18/20 14:12 Active Heart Tones [RC] ASDIRECTED Care 10/18/20 14:12 Active Non Stress Test [RC] PER UNIT ROUTINE Care 10/18/20 14:12 Active Notify Provider [RC] ASDIRECTED Care 10/18/20 15:01 Active Notify Provider [RC] PFP Care 10/18/20 14:12 Active Notify Provider [RC] PRN Care 10/18/20 14:12 Active Oxygen Therapy [RC] ASDIRECTED Care 10/18/20 15:01 Active Peripheral IV Care [RC] . DIRECTED Care 10/18/20 14:12 Active Pulse Oximetry [RC] ASDIRECTED Care 10/18/20 15:01 Active Vital Signs [RC] PER UNIT ROUTINE Care 10/18/20 14:12 Active Regular Diet [DIET] Diet 10/18/20 Lunch Active RAPID PLASMA REAGIN,RPR [CHEM] Routine Lab 10/18/20 14:26 Received Bupivacaine/fentaNYL/NS [fentaNYL/Bupivacaine/NS 2 MCG- Med 10/18/20 15:15 Active 0.125% 100 ML] 100 ml EPIDUR ASDIRECTED Lactated Ringers [Ringers, Lactated] 1,000 ml Med 10/18/20 14:15 Active IV ASDIRECTED Nalbuphine [Nubain] Med 10/18/20 14:12 Active 10 mg IVPUSH Q2H PRN Ondansetron [Zofran] Med 10/18/20 15:01 Active 4 mg IVPUSH ONETIME PRN Ondansetron [Zofran] Med 10/18/20 14:12 Active 4 mg IVPUSH Q4H PRN Oxytocin/Lactated Ringers [Pitocin in LR 10 Units/1,000 Med 10/18/20 14:15 Active ML] 10 unit in 1,000 ml IV .CONTINUOUS Sodium Chloride 0.9% [Saline Flush] Med 10/18/20 14:12 Active 10 ml FLUSH ASDIRECTED PRN ePHEDrine [ePHEDrine sulfate] Med 10/18/20 15:01 Active 5 mg IVPUSH ASDIRECTED PRN fentaNYL [Sublimaze] Med 10/18/20 15:01 Active 100 mcg EPIDUR Q3H PRN Electronic Heart Tones Ext w TOCO [WOMSER] Oth 10/18/20 14:12 Ordered Routine Electronic Heart Tones Internal [WOMSER] Per Unit Oth 10/18/20 14:12 Ordered Routine Peripheral IV Insertion Adult [OM.PC] Routine Oth 10/18/20 14:12 Ordered Resuscitation Status Routine Resus Stat 10/18/20 14:12 Ordered Medication Orders Ephedrine Sulfate (Ephedrine Sulfate) 5 mg IVPUSH ASDIRECTED PRN PRN Reason: Hypotension Fentanyl (Sublimaze) 100 mcg EPIDUR Q3H PRN PRN Reason: Pain Fentanyl/Bupivacaine HCl (Fentanyl/Bupivacaine/Ns 2 Mcg-0.125% 100 Ml) 100 ml EPIDUR ASDIRECTED RALPH Oxytocin/Lactated Ringer's (Pitocin In Lr 10 Units/1,000 Ml) 10 unit in 1,000 mls @ 500 mls/hr IV .CONTINUOUS RALPH Lactated Ringer's (Ringers, Lactated) 1,000 mls @ 100 mls/hr IV ASDIRECTED [facility] Last Admin: 10/18/20 17:08 Dose: 999 mls/hr Documented by: DOM Nalbuphine HCl (Nubain) 10 mg IVPUSH Q2H PRN PRN Reason: Pain Ondansetron HCl (Zofran) 4 mg IVPUSH Q4H PRN PRN Reason: Nausea/Vomiting Ondansetron HCl (Zofran) 4 mg IVPUSH ONETIME PRN PRN Reason: Nausea/Vomiting Sodium Chloride (Saline Flush) 10 ml FLUSH ASDIRECTED PRN PRN Reason: Keep Vein Open Assessment/Plan Comment:: Argelia Miller is a 35-year-old -0-0-2 female at 39 weeks 1 day with early labor and cervical change and kept for augmentation of labor for a trial of labor after section Patient had artificial rupture membranes with [place] with return of moderate amount of clear fluid. Mother and tolerated without difficulty. Refer to observation for augmentation of labor with artificial rupture of membranes after patient has had some cervical change since he was seen in the office Start Pitocin for augmentation of labor if she does not have cervical change in approximately 2 hours or if she does not have a regular contraction pattern by [address] IV and have Lactated Ringer's at 125 ml/hr May have small amounts of regular diet Activity as tolerated May have epidural as desired Plans to breast-feed after delivery Patient counseled on the risks, benefits and alternatives of trial of labor after section and she desired to proceed with TOLAC. Consents were signed. Anticipate vaginal delivery unless otherwise indicated Jose Lares MD 5:33 PM 10/18/2020
--- NOTE | 2020-10-18 19:38 | PCM.DEL ---
L & D Note - General Info Date of Service: 10/18/20 Mother's Due Date: 10/24/20 - Delivery Note Labor: Spontaneous, Augmented by ARM Delivery Outcome: Livebirth Delivery Mode: Vacuum Extraction (Bales mechanical vacuum extractor delivery) Presentation: Left Occiput Anterior (NORAH) Nuchal Cord: Present, Reduced (After delivery of the infant) Anesthesia Type: Epidural Amniotic Fluid Description: Clear Episiotomy Type: None Laceration: 2nd Degree (midline perineal laceration repaired with 3-0 Vicryl) Placenta: Intact, Spontaneous Cord: 3 Vessels Estimated Blood Loss: 250 : Suctioned, Bulb Syringe, Stimulated, Warmed, [place] Used, Warmer Used Provider: Jose Lares Score 1 min: 9 Score 5 min: 9 Second Stage Interventions: Reports: Pushing, Stirrups/Leg Supports Delivery Comments (Free Text/Narrative):: Stage I: Argelia Miller was admitted for early stages of labor with cervical change from when she was seen in the clinic several days prior and contractions. On admission her cervix was dilated to 4.5 cm. She was GBS negative. She had artificial rupture membranes with return of clear fluid. She was given an epidural for anesthesia. Just prior to getting to complete dilation she had quick cervical dilation to 8 cm and the had an episode of bradycardia and recovered. She had a straight catheter drainage of her bladder with drainage of 200 mL of urine. She progressed to complete and pushing. Stage II: During pushing the had persistent bradycardia down to the 80s to 90s without recovery between pushing. The had normal heart tones during pushing with heart rate in the 140s to 160s. Because of this persistent bradycardia it was felt that the infant should be delivered more quickly before worsening of the bradycardia. The mother was counseled on the risks and benefits of vacuum extractor delivery and she consented to the procedure. A Kiwi mushroom Vacuum was applied to the head and care was taken to ensure that there was not any vaginal tissue between the vacuum extractor head and the head. With the next contraction the vacuum was applied and traction was applied to the vacuum extractor to 550 mmHg. During pulling with the vacuum extractor there was a loss of suction at the edge of the vacuum extractor and decision was made to use the mechanical pump bales vacuum extractor. The bales type extractor was applied to the head with care again taken to ensure that there was not any vaginal tissue between the vacuum extractor and the head. With the next contraction the vacuum suction was applied to 500 mmHg. Patient pushed with this contraction and the infant was able to be delivered with 2 pushes during this 1 contraction. The suction was applied to the head for approximately a total of 45 seconds between the 2 vacuum extractor's. There were no pop offs. On 10/18/2020 she had a vacuum extractor vaginal delivery after section of a live female at 18:54. Apgars of 9 & 9. Weight of 2670 g (5 lbs 14.2 oz). Length of 19.5 inches. There was a single nuchal cord that was tight around the neck and unable to be reduced prior to delivery. The nuchal cord was reduced after the delivery of the infant. Infant was delivered in NORAH position. The cord was doubly clamped and cut by father the infant. Infant was placed on mother's abdomen and then taken to the warmer for further resuscitation. Stage III: She had a spontaneous delivery of an intact placenta in Freddie presentation. Three vessel cord. She was given pitocin and fundal massage. She had a second-degree midline perineal laceration that was repaired with 3-0 Vicryl. Mom and baby were stable to recovery. EBL of 250 mL. Jose Lares MD 7:33 PM 10/18/2020 Vacuum Extractor Progress Note - Alternative Labor Strategies Considered Alternative Labor Strategies Considered:: Reports: Yes Strategies Considered:: Reports: Empty Bladder Indications Considered:: Reports: Yes Indications:: Reports: Suspicion of Immediate or Potential Compromise (prolonged bradycardia) Time Out:: Reports: Yes - Patient Prepared Patient Prepared:: Reports: Yes Informed Consent:: Reports: Verbal Risks: Reports: Yes Risks Include:: Reports: Laceration, Shoulder Dystocia, Maternal Injury Anesthesia/Analgesia Adequate:: Reports: Yes - Probability of Success High Probability of Success:: Reports: Yes Weight Estimated:: Reports: SGA Patient Diabetic:: Reports: No Pelvis Adequate:: Reports: Yes Position:: NORAH Asynclitic:: Reports: No Station:: +2 - Application Time Maximum Application Time & Number of Pop-Offs Predetermined:: Reports: Yes Maximum Pressure Maintained in Green [place] (cm Hg):: 55 Total Application Time (min): *max=20min: 1 Number of Times Cup Disengaged:: 0 Type of Vacuum Used:: Reports: Cup: Bales type Vacuum Extraction: Successful - Exit Strategy Exit strategy available:: Reports: Yes and resuscitation teams readily available:: Reports: Yes - General Info Date of Service: 10/18/20 - Patient Data Vitals - Most Recent: Last Vital Signs Temp 37.2 C 10/18/20 14:12 Pulse 72 10/18/20 14:12 Resp 16 10/18/20 14:12 BP 115/66 10/18/20 14:12 Pulse Ox 100 10/18/20 14:12 Weight - Most Recent: 66.48 kg Lab Results Last 24 Hours: Laboratory Results - last 24 hr 10/18/20 10/18/20 10/18/20 Range/Units 14:20 14:26 14:26 WBC 10.72 H (3.98-10.04) K/mm3 RBC 4.21 (3.98-5.22) M/mm3 Hgb 12.8 (11.2-15.7) gm/dl Hct 37.9 (34.1-44.9) % MCV 90.0 (79.4-94.8) fl MCH 30.4 (25.6-32.2) pg MCHC 33.8 (32.2-35.5) g/dl RDW Std Deviation 42.1 (36.4-46.3) fL Plt Count 258 D (182-369) K/mm3 MPV 10.0 (9.4-12.3) fl Neut % (Auto) 80.6 H (34.0-71.1) % Lymph % (Auto) 14.6 L (19.3-51.7) % [place] % (Auto) 4.2 L (4.7-12.5) % Eos % (Auto) 0.3 L (0.7-5.8) Baso % (Auto) 0.2 (0.1-1.2) % Neut # (Auto) 8.65 H (1.56-6.13) K/mm3 Lymph # (Auto) 1.56 (1.18-3.74) K/mm3 [place] # (Auto) 0.45 H (0.24-0.36) K/mm3 Eos # (Auto) 0.03 L (0.04-0.36) K/mm3 Baso # (Auto) 0.02 (0.01-0.08) K/mm3 SARS-CoV-2 RNA (RAKEL) Negative (NEGATIVE) Blood Type O POSITIVE Gel Antibody Screen Negative Med Orders - Current: Current Medications Ephedrine Sulfate (Ephedrine Sulfate) 5 mg IVPUSH ASDIRECTED PRN PRN Reason: Hypotension Fentanyl (Sublimaze) 100 mcg EPIDUR Q3H PRN PRN Reason: Pain Last Admin: 10/18/20 17:33 Dose: 100 mcg Documented by: Fentanyl/Bupivacaine HCl (Fentanyl/Bupivacaine/Ns 2 Mcg-0.125% 100 Ml) 100 ml EPIDUR ASDIRECTED RALPH Oxytocin/Lactated Ringer's (Pitocin In Lr 10 Units/1,000 Ml) 10 unit in 1,000 mls @ 500 mls/hr IV .CONTINUOUS RALPH Last Admin: 10/18/20 19:09 Dose: 500 mls/hr Documented by: Lactated Ringer's (Ringers, Lactated) 1,000 mls @ 100 mls/hr IV ASDIRECTED RALPH Last Admin: 10/18/20 17:38 Dose: 999 mls/hr Documented by: Nalbuphine HCl (Nubain) 10 mg IVPUSH Q2H PRN PRN Reason: Pain Ondansetron HCl (Zofran) 4 mg IVPUSH Q4H PRN PRN Reason: Nausea/Vomiting Ondansetron HCl (Zofran) 4 mg IVPUSH ONETIME PRN PRN Reason: Nausea/Vomiting Sodium Chloride (Saline Flush) 10 ml FLUSH ASDIRECTED PRN PRN Reason: Keep Vein Open Discontinued Medications Lidocaine HCl (Xylocaine 1%) 50 ml INJECT ONETIME ONE Stop: 10/18/20 14:13 Miscellaneous Medication (Phenylephrine 1 Mg/10 Ml-Ns) 1 mg IVPUSH ONETIME ONE Stop: 10/18/20 15:02 - Problem List & Annotations (1) 39 weeks gestation of SNOMED Code(s): 48094837 Code(s): Z3A.39 - 39 WEEKS GESTATION OF Status: Acute Current Visit: Yes (2) History of delivery, currently SNOMED Code(s): 149996492, 231065041 Code(s): O34.219 - MATERNAL CARE FOR UNSP TYPE SCAR FROM PREVIOUS DEL Status: Acute Current Visit: No (3) History of section, low transverse SNOMED Code(s): 856274706 Code(s): Z98.891 - HISTORY OF UTERINE SCAR FROM PREVIOUS SURGERY Status: Acute Current Visit: No (4) Vacuum extractor delivery, delivered SNOMED Code(s): 596444944 Code(s): O66.5 - ATTEMPTED APPLICATION OF VACUUM EXTRACTOR AND FORCEPS Status: Acute Current Visit: Yes (5) Second degree perineal laceration during delivery, delivered SNOMED Code(s): 1621665, 700657586 Code(s): O70.1 - SECOND DEGREE PERINEAL LACERATION DURING DELIVERY Status: Acute Current Visit: No (6) Vaginal after () SNOMED Code(s): 979803775 Code(s): O34.219 - MATERNAL CARE FOR UNSP TYPE SCAR FROM PREVIOUS DEL Status: Acute Current Visit: No - Problem List Review Problem List Initiated/Reviewed/Updated: Yes - My Orders Last 24 Hours: My Active Orders 10/18/20 Lunch Regular Diet [DIET] 10/18/20 14:12 Patient Status [ADT] Routine Activity as Tolerated [RC] PFP Communication Order [RC] ASDIRECTED Heart Tones [RC] ASDIRECTED Non Stress Test [RC] PER UNIT ROUTINE Notify Provider [RC] PFP Notify Provider [RC] PRN Peripheral IV Care [RC] . DIRECTED Vital Signs [RC] PER UNIT ROUTINE Nalbuphine [Nubain] 10 mg IVPUSH Q2H PRN Ondansetron [Zofran] 4 mg IVPUSH Q4H PRN Sodium Chloride 0.9% [Saline Flush] 10 ml FLUSH ASDIRECTED PRN Electronic Heart Tones Ext w TOCO [WOMSER] Routine Electronic Heart Tones Internal [WOMSER] Per Unit Routine Peripheral IV Insertion Adult [OM.PC] Routine Resuscitation Status Routine 10/18/20 14:15 Lactated Ringers [Ringers, Lactated] 1,000 ml IV ASDIRECTED Oxytocin/Lactated Ringers [Pitocin in LR 10 Units/1,000 ML] 10 unit in 1,000 ml IV .CONTINUOUS 10/18/20 14:26 RAPID PLASMA REAGIN,RPR [CHEM] Routine 10/18/20 19:18 Patient Status Manage Transfer [TRANSFER] Routine - Plan Plan:: Argelia Miller is a 35-year-old now -0-0-3 female status post vacuum-assisted vaginal delivery after section, PPD #0, complicated by bradycardia during second stage of labor with vacuum assistance for delivery and history of section Admit to inpatient following vacuum-assisted vaginal delivery after section Continue Pitocin per unit protocol following delivery of placenta and lactated Ringer's until tolerating regular diet Regular diet Vitals per unit routine Ibuprofen and Tylenol for pain control Assist with breast-feeding as needed Continue to monitor lochia Anticipate discharge home on day #1 or #2 depending on status Jose Lares MD 7:33 PM 10/18/2020
[2020-10-18] MEDS ORDERED: Magnesium Hydroxide 400 MG/5 ML Susp 30 ML Cup PO PRN (19:43)
[2020-10-18] MEDS ORDERED: Hydrocortisone Acetate 25 MG Supp RECTAL PRN (19:43)
[2020-10-18] MEDS ORDERED: Benzocaine/Menthol 20%-0.5% Spray 56 GM Canister TOP PRN (19:43)
[2020-10-18] MEDS ORDERED: Acetaminophen 325 MG Tab PO PRN (19:43)
[2020-10-18] MEDS: Witch Hazel Medicated Pads 40/Jar TOP PRN (21:46)
[2020-10-19] MEDS ORDERED: Bupivacaine 0.25% 10 ML SDV ONE
[2020-10-19] MEDS: Ibuprofen 600 MG Tab PO PRN ×4 (02:55→21:52)
--- NOTE | 2020-10-19 10:14 | PCM.SN.2 ---
- Free Text/Narrative Note: Post Progress Note PPD #1 Subjective: Doing well overall. Ambulating without difficulty. Lochia minimal. Voiding without difficulty. Tolerating regular diet without nausea or vomiting. Pain controlled with oral medications. Breast-feeding with minimal difficulty. Objective: Vitals: Vital Signs - 24 hr 10/18/20 10/18/20 10/18/20 13:46 14:12 16:50 Temperature Temperature [ 37.2 C Temporal] Pulse, 78 69 Peripheral Pulse, 72 Peripheral [ Right] Respiratory 16 Rate Blood Pressure 114/72 Blood Pressure 115/66 [Right Arm] O2 Sat by Pulse 100 100 Oximetry 10/18/20 10/18/20 10/18/20 17:00 17:30 18:01 Temperature Temperature [ Temporal] Pulse, 78 83 84 Peripheral Pulse, Peripheral [ Right] Respiratory Rate Blood Pressure 109/70 122/67 111/64 Blood Pressure [Right Arm] O2 Sat by Pulse Oximetry 10/18/20 10/18/20 10/18/20 18:30 19:00 19:30 Temperature Temperature [ Temporal] Pulse, 155 H 85 78 Peripheral Pulse, Peripheral [ Right] Respiratory Rate Blood Pressure 121/70 Blood Pressure [Right Arm] O2 Sat by Pulse 100 100 Oximetry 10/18/20 10/18/20 10/18/20 20:00 20:30 21:01 Temperature Temperature [ Temporal] Pulse, 83 73 78 Peripheral Pulse, Peripheral [ Right] Respiratory Rate Blood Pressure 109/65 97/60 107/64 Blood Pressure [Right Arm] O2 Sat by Pulse Oximetry 10/19/20 05:08 Temperature 36.6 C Temperature [ Temporal] Pulse, 68 Peripheral Pulse, Peripheral [ Right] Respiratory 16 Rate Blood Pressure 108/80 Blood Pressure [Right Arm] O2 Sat by Pulse 100 Oximetry Physical Exam General: Alert and oriented, no acute distress Lungs: Clear to auscultation bilaterally Heart: Regular rate and rhythm Abdomen: Soft, minimal appropriate tenderness, non-distended, fundus midline, nontender, and at the umbilicus Extremities: No edema ASSESSMENT: 35-year-old female -0-0-3 s/p vacuum-assisted vaginal delivery after section PPD #1, complicated by persistent bradycardia during second stage of labor, history of section and history of successful PLAN: Doing well Breast-feeding with minimal difficulty. Assist as needed Lochia minimal. Continue to monitor for appropriate lochia. Continue routine care Anticipate discharge home today if infant is discharged home Jose Lares MD 10:13 AM 10/19/2020
--- NOTE | 2020-10-19 10:18 | PCM.DCSUM1 ---
Discharge Summary - Hospital Course Free Text/Narrative:: - General Info Date of Service: 10/18/20 Mother's Due Date: 10/24/20 - Delivery Note Labor: Spontaneous, Augmented by ARM Delivery Outcome: Livebirth Delivery Mode: Vacuum Extraction (Bales mechanical vacuum extractor delivery) Presentation: Left Occiput Anterior (NORAH) Nuchal Cord: Present, Reduced (After delivery of the ) Anesthesia Type: Epidural Amniotic Fluid Description: Clear Episiotomy Type: None Laceration: 2nd Degree (midline perineal laceration repaired with 3-0 Vicryl) Placenta: Intact, Spontaneous Cord: 3 Vessels Estimated Blood Loss: 250 : Suctioned, Bulb Syringe, Stimulated, Warmed, [place] Used, Warmer Used Provider: Jose Lares Score 1 min: 9 Score 5 min: 9 Second Stage Interventions: Reports: Pushing, Stirrups/Leg Supports Delivery Comments (Free Text/Narrative):: Stage I: Argelia Miller was admitted for early stages of labor with cervical change from when she was seen in the clinic several days prior and contractions. On admission her cervix was dilated to 4.5 cm. She was GBS negative. She had artificial rupture membranes with return of clear fluid. She was given an epidural for anesthesia. Just prior to getting to complete dilation she had quick cervical dilation to 8 cm and the had an episode of bradycardia and recovered. She had a straight catheter drainage of her bladder with drainage of 200 mL of urine. She progressed to complete and pushing. Stage II: During pushing the infant had persistent bradycardia down to the 80s to 90s without recovery between pushing. The had normal heart tones during pushing with heart rate in the 140s to 160s. Because of this persistent bradycardia it was felt that the should be delivered more quickly before worsening of the bradycardia. The mother was counseled on the risks and benefits of vacuum extractor delivery and she consented to the procedure. A Kiwi mushroom Vacuum was applied to the head and care was taken to ensure that there was not any vaginal tissue between the vacuum extractor head and the head. With the next contraction the vacuum was applied and traction was applied to the vacuum extractor to 550 mmHg. During pulling with the vacuum extractor there was a loss of suction at the edge of the vacuum extractor and decision was made to use the mechanical pump bales vacuum extractor. The bales type extractor was applied to the head with care again taken to ensure that there was not any vaginal tissue between the vacuum e xtractor and the head. With the next contraction the vacuum suction was applied to 500 mmHg. Patient pushed with this contraction and the infant was able to be delivered with 2 pushes during this 1 contraction. The suction was applied to the head for approximately a total of 45 seconds between the 2 vacuum extractor's. There were no pop offs. On 10/18/2020 she had a vacuum extractor vaginal delivery after section of a live female at 18:54. Apgars of 9 & 9. Weight of 2670 g (5 lbs 14.2 oz). Length of 19.5 inches. There was a single nuchal cord that was tight around the neck and unable to be reduced prior to delivery. The nuchal cord was reduced after the delivery of the infant. was delivered in NORAH position. The cord was doubly clamped and cut by father the . was placed on mother's abdomen and then taken to the warmer for further resuscitation. Stage III: She had a spontaneous delivery of an intact placenta in Freddie presentation. Three vessel cord. She was given pitocin and fundal massage. She had a second-degree midline perineal laceration that was repaired with 3-0 Vicryl. Mom and baby were stable to recovery. EBL of 250 mL. Diagnosis: Stroke: No - Discharge Data Discharge Date: 10/20/20 Discharge Disposition: Home, Self-Care 01 Condition: Good - Referral to Home Health Primary Care Physician: PCP None - Discharge Diagnosis/Problem(s) (1) 39 weeks gestation of SNOMED Code(s): 09313033 ICD Code: Z3A.39 - 39 WEEKS GESTATION OF Status: Acute Current Visit: Yes (2) History of delivery, currently SNOMED Code(s): 112219088, 400646258 ICD Code: O34.219 - MATERNAL CARE FOR UNSP TYPE SCAR FROM PREVIOUS DEL Status: Acute Current Visit: No (3) History of section, low transverse SNOMED Code(s): 919241858 ICD Code: Z98.891 - HISTORY OF UTERINE SCAR FROM PREVIOUS SURGERY Status: Acute Current Visit: No (4) Vacuum extractor delivery, delivered SNOMED Code(s): 173385117 ICD Code: O66.5 - ATTEMPTED APPLICATION OF VACUUM EXTRACTOR AND FORCEPS Status: Acute Current Visit: Yes (5) Second degree perineal laceration during delivery, delivered SNOMED Code(s): 8065161, 241081439 ICD Code: O70.1 - SECOND DEGREE PERINEAL LACERATION DURING DELIVERY Status: Acute Current Visit: No (6) Vaginal after () SNOMED Code(s): 641925040 ICD Code: O34.219 - MATERNAL CARE FOR UNSP TYPE SCAR FROM PREVIOUS DEL Status: Acute Current Visit: No - Patient Summary/Data Operative Procedure(s) Performed: Vacuum extractor vaginal delivery Complications: Persistent bradycardia during second stage of labor and delivered with vacuum extractor delivery Consults: None Hospital Course: Argelia Miller was admitted for early stage of labor with cervical change from when she was previously seen in the clinic and regular contractions. On admission her cervix was dilated to 4.5 cm. She was GBS negative. She had artificial rupture of membranes with clear fluid. She was given an epidural for anesthesia. She progressed to complete and began pushing. During pushing patient was noted to have bradycardia into the 80s to 90s without recovery between pushing. Patient underwent a vacuum-assisted vaginal delivery without any complications. The was delivered with use of the bales type mechanical vacuum extractor. The vacuum was applied for a total of approximately 45 seconds. There were no pop offs of the vacuum extractor's. On 10/18/2020 she had a vacuum-assisted vaginal delivery after section of a live female infant at 18:54. Apgars of 9 and 9. Weight of 2670 g (5 pounds 14.2 ounces). Her course was uneventful. Her pain was well controlled and she had minimal lochia. She was ambulating, tolerating a regular diet and voiding normally. She was breast-feeding with minimal difficulty. She was afebrile and her hematocrit was 37.9 on admission. She desired to be discharged home in the evening of PPD #2. Her blood type is O+. - Patient Instructions Diet: Regular Diet as Tolerated Activity: Apply Ice, As Tolerated Activity, Other: Nothing in the vagina for 6 weeks Driving: May Drive Today Showering/Bathing: May Shower Notify Provider of: Fever, Increased Pain, Swelling and Redness, Drainage, Nausea and/or Vomiting Other/Special Instructions: Please contact your physician's office if you have heavy vaginal bleeding enough to soak a pad in less than an hour for several hours. Monitor for any signs of an infection in the breasts with severe pain or redness of the breast. - Discharge Plan *PRESCRIPTION DRUG MONITORING PROGRAM REVIEWED*: Not Applicable *COPY OF PRESCRIPTION DRUG MONITORING REPORT IN PATIENT KHANH: Not Applicable Home Medications: Home Meds Pnv No.95/Ferrous Fum/Folic AC [ Tablet] 1 tab PO DAILY 03/13/18 [History] Acetaminophen [Tylenol] 650 mg PO Q6H PRN tablet 10/19/20 [Rx] Benzocaine/Menthol [Dermoplast Pain Relief [place]] 1 spray TOP ASDIRECTED PRN canister 10/19/20 [Rx] Docusate Sodium [Colace] 100 mg PO BID PRN cap 10/19/20 [Rx] Hydrocortisone Acetate [Anucort-HC] 25 mg RECTAL BID PRN supp 10/19/20 [Rx] Ibuprofen [Motrin] 600 mg PO Q6H PRN tablet 10/19/20 [Rx] witdmitriy Shandra [Tucks] 1 pad TOP ASDIRECTED PRN pad 10/19/20 [Rx] Patient Handouts: Vacuum-Assisted Vaginal Delivery, Care of a Perineal Tear, Care After Vaginal Delivery Referrals: Jose Lares MD [Physician] - (Follow-up and 2 to 3 weeks for routine visit or earlier as needed.) - Discharge Summary/Plan Comment DC Time >30 min.: No - Patient Data Vitals - Most Recent: Last Vital Signs Temp 36.6 C 10/19/20 05:08 Pulse 68 10/19/20 05:08 Resp 16 10/19/20 05:08 BP 108/80 10/19/20 05:08 Pulse Ox 100 10/19/20 05:08 Weight - Most Recent: 66.48 kg Lab Results - Last 24 hrs: Laboratory Results - last 24 hr 10/18/20 10/18/20 10/18/20 Range/Units 14:20 14:26 14:26 WBC 10.72 H (3.98-10.04) K/mm3 RBC 4.21 (3.98-5.22) M/mm3 Hgb 12.8 (11.2-15.7) gm/dl Hct 37.9 (34.1-44.9) % MCV 90.0 (79.4-94.8) fl MCH 30.4 (25.6-32.2) pg MCHC 33.8 (32.2-35.5) g/dl RDW Std Deviation 42.1 (36.4-46.3) fL Plt Count 258 D (182-369) K/mm3 MPV 10.0 (9.4-12.3) fl Neut % (Auto) 80.6 H (34.0-71.1) % Lymph % (Auto) 14.6 L (19.3-51.7) % [place] % (Auto) 4.2 L (4.7-12.5) % Eos % (Auto) 0.3 L (0.7-5.8) Baso % (Auto) 0.2 (0.1-1.2) % Neut # (Auto) 8.65 H (1.56-6.13) K/mm3 Lymph # (Auto) 1.56 (1.18-3.74) K/mm3 [place] # (Auto) 0.45 H (0.24-0.36) K/mm3 Eos # (Auto) 0.03 L (0.04-0.36) K/mm3 Baso # (Auto) 0.02 (0.01-0.08) K/mm3 RPR Non-reactive (NONREACTIVE) SARS-CoV-2 RNA (RAKEL) Negative (NEGATIVE) Blood Type Gel Antibody Screen 10/18/20 Range/Units 14:26 WBC (3.98-10.04) K/mm3 RBC (3.98-5.22) M/mm3 Hgb (11.2-15.7) gm/dl Hct (34.1-44.9) % MCV (79.4-94.8) fl MCH (25.6-32.2) pg MCHC (32.2-35.5) g/dl RDW Std Deviation (36.4-46.3) fL Plt Count (182-369) K/mm3 MPV (9.4-12.3) fl Neut % (Auto) (34.0-71.1) % Lymph % (Auto) (19.3-51.7) % [place] % (Auto) (4.7-12.5) % Eos % (Auto) (0.7-5.8) Baso % (Auto) (0.1-1.2) % Neut # (Auto) (1.56-6.13) K/mm3 Lymph # (Auto) (1.18-3.74) K/mm3 [place] # (Auto) (0.24-0.36) K/mm3 Eos # (Auto) (0.04-0.36) K/mm3 Baso # (Auto) (0.01-0.08) K/mm3 RPR (NONREACTIVE) SARS-CoV-2 RNA (RAKEL) (NEGATIVE) Blood Type O POSITIVE Gel Antibody Screen Negative Med Orders - Current: Current Medications Acetaminophen (Tylenol) 650 mg PO Q6H PRN PRN Reason: mild pain or fever Benzocaine/Menthol (Dermoplast Pain Relief [place]) 0 gm TOP ASDIRECTED PRN PRN Reason: Perineal Comfort Measure Last Admin: 10/18/20 21:46 Dose: 1 can Documented by: Docusate Sodium (Colace) 100 mg PO BID PRN PRN Reason: Constipation Hydrocortisone Acetate (Anucort-Hc) 25 mg RECTAL BID PRN PRN Reason: Hemorrhoid pain Oxytocin/Lactated Ringer's (Pitocin In Lr 10 Units/1,000 Ml) 10 unit in 1,000 mls @ 100 mls/hr IV TITRATE RALPH; Protocol Ibuprofen (Motrin) 600 mg PO Q6H PRN PRN Reason: Mild pain or fever Last Admin: 10/19/20 02:55 Dose: 600 mg Documented by: Magnesium Hydroxide (Milk Of Magnesia) 30 ml PO BEDTIME PRN PRN Reason: Constipation Prenat Multivit/Director [employer]/Iron/Folic Ac ( Plus Iron) 1 each PO DAILY [facility] Gracie Tapia (Tucks) 1 pad TOP ASDIRECTED PRN PRN Reason: Perineal Comfort Measure Last Admin: 10/18/20 21:46 Dose: 1 tub Documented by: Discontinued Medications Bupivacaine HCl (Sensorcaine-Mpf 0.25%) 10 ml .ROUTE .STK-MED ONE Stop: 10/19/20 00:01 Ephedrine Sulfate (Ephedrine Sulfate) 5 mg IVPUSH ASDIRECTED PRN PRN Reason: Hypotension Fentanyl (Sublimaze) 100 mcg EPIDUR Q3H PRN PRN Reason: Pain Last Admin: 10/18/20 17:33 Dose: 100 mcg Documented by: Fentanyl/Bupivacaine HCl (Fentanyl/Bupivacaine/Ns 2 Mcg-0.125% 100 Ml) 100 ml EPIDUR ASDIRECTED RALPH Oxytocin/Lactated Ringer's (Pitocin In Lr 10 Units/1,000 Ml) 10 unit in 1,000 mls @ 500 mls/hr IV .CONTINUOUS RALPH Last Admin: 10/18/20 19:09 Dose: 500 mls/hr Documented by: Lactated Ringer's (Ringers, Lactated) 1,000 mls @ 100 mls/hr IV ASDIRECTED RALPH Last Admin: 10/18/20 17:38 Dose: 999 mls/hr Documented by: Lidocaine HCl (Xylocaine 1%) 50 ml INJECT ONETIME ONE Stop: 10/18/20 14:13 Miscellaneous Medication (Phenylephrine 1 Mg/10 Ml-Ns) 1 mg IVPUSH ONETIME ONE Stop: 10/18/20 15:02 Nalbuphine HCl (Nubain) 10 mg IVPUSH Q2H PRN PRN Reason: Pain Ondansetron HCl (Zofran) 4 mg IVPUSH Q4H PRN PRN Reason: Nausea/Vomiting Ondansetron HCl (Zofran) 4 mg IVPUSH ONETIME PRN PRN Reason: Nausea/Vomiting Sodium Chloride (Saline Flush) 10 ml FLUSH ASDIRECTED PRN PRN Reason: Keep Vein Open
[2020-10-19] MEDS: Prenatal Multivitamin with Calcium/Folic Acid/Iron Tab PO SCH (10:29)
[2020-10-19] MEDS: Docusate Sodium 100 MG Cap PO PRN ×2 (10:29→21:52)
--- NOTE | 2020-10-19 14:32 | PCM48HPAN ---
Post Anesthesia Note - EVALUATION WITHIN 48HRS OF ANESTHETIC Vital Signs in Normal Range: Yes Patient Participated in Evaluation: Yes Respiratory Function Stable: Yes Airway Patent: Yes Cardiovascular Function Stable: Yes Hydration Status Stable: Yes Pain Control Satisfactory: Yes Nausea and Vomiting Control Satisfactory: Yes Mental Status Recovered: Yes Vital Signs: Last Vital Signs Temp 36.7 C 10/19/20 08:19 Pulse 65 10/19/20 08:19 Resp 15 10/19/20 08:19 BP 97/68 10/19/20 08:19 Pulse Ox 99 10/19/20 08:19
[2020-10-19] MEDS: Witch Hazel Medicated Pads 40/Jar TOP PRN (16:27)
[2020-10-20 08:10] VITALS: BP 108/66; PULSE 70
[2020-10-20] MEDS: Docusate Sodium 100 MG Cap PO PRN (08:40)
[2020-10-20] MEDS: Prenatal Multivitamin with Calcium/Folic Acid/Iron Tab PO SCH (08:41)
[2020-10-20] MEDS: Ibuprofen 600 MG Tab PO PRN (08:41)
--- NOTE | 2020-10-20 08:57 | PCM.SN.2 ---
- Free Text/Narrative Note: Post Progress Note PPD #2 Subjective: Doing well overall. Ambulating without difficulty. Lochia minimal. Voiding without difficulty. Tolerating regular diet without nausea or vomiting. Pain controlled with oral medications. Breast-feeding with minimal difficulty. Objective: Vitals: Vital Signs - 24 hr 10/19/20 10/19/20 10/20/20 15:08 21:46 05:15 Temperature 36.6 C 36.6 C 36.8 C Pulse, 74 67 70 Peripheral Respiratory 14 14 14 Rate Blood Pressure 109/62 110/68 108/66 O2 Sat by Pulse 99 98 99 Oximetry Physical Exam General: Alert and oriented, no acute distress Lungs: Clear to auscultation bilaterally Heart: Regular rate and rhythm Abdomen: Soft, minimal appropriate tenderness, non-distended, fundus midline, nontender, and at the umbilicus Extremities: No edema, no calf tenderness bilaterally ASSESSMENT: 35-year-old female -0-0-3 s/p vacuum-assisted vaginal delivery after section PPD #2, complicated by persistent bradycardia during second stage of labor, history of section and history of successful PLAN: Doing well Breast-feeding with minimal difficulty. Assist as needed Lochia minimal. Continue to monitor for appropriate lochia. Continue routine care Discharge home today Jose Lares MD 8:56 AM 10/20/2020
== END 2020-10-20 09:44 | disposition home or self-care (01) | DRG 560 ==
LOC: JD.OBCHECK 13:27 → JD.OB 14:12 → OBSVTOIN 18:54 → JD.OB 18:54
PROVIDERS: ADMIT Obstetrics & Gynecology; ATTEND Obstetrics & Gynecology
PROC: 10D07Z6 Extraction of Products of Conception, Vacuum, Via Natural or Artificial Opening (ICD-10-PCS; principal; 2020-10-18)
PROC: 10907ZC Drainage of Amniotic Fluid, Therapeutic from Products of Conception, Via Natural or Artificial Opening (ICD-10-PCS; 2020-10-18)
PROC: 0KQM0ZZ Repair Perineum Muscle, Open Approach (ICD-10-PCS; 2020-10-18)
PROC: 3E0R3BZ Introduction of Anesthetic Agent into Spinal Canal, Percutaneous Approach (ICD-10-PCS; 2020-10-18)
DX: O69.81X0 Labor and delivery complicated by cord around neck, without compression, not applicable or unspecified (principal); Z3A.39 39 weeks gestation of pregnancy; Z37.0 Single live birth; O70.1 Second degree perineal laceration during delivery; Z20.822 Contact with and (suspected) exposure to COVID-19
CPT/HCPCS: 01967; 36415; 51701; 59025; 59409; 85025; 86592; 86850; 86900; 86901; A9270-GY; J2590; J3010; J3490; J7120; U0002